=== PATIENT | male | born 1965 | race Caucasian/White ===

== ENCOUNTER → 2020-07-08 | Outpatient (CLI) | payer OTHER ==
[~2020-07-08] MED LIST: COVID-19 VACC, MRNA(MODERNA)/PF 100 MCG/0.5 ML VIAL IM ONE
== END | disposition home or self-care (01) ==
LOC: VACCPMC 17:16
DX: Z23 Encounter for immunization (principal); Z20.822 Contact with and (suspected) exposure to COVID-19
CPT/HCPCS: 0011A; 91301

== ENCOUNTER → 2020-08-05 | Outpatient (CLI) | payer OTHER | LOC: EDSEX → VACCPMC 11:25 | DX: Z20.822 Contact with and (suspected) exposure to COVID-19 (principal); Z23 Encounter for immunization | CPT/HCPCS: 91301 ==